=== PATIENT | female | born 1955 | race Caucasian/White ===

== ENCOUNTER → 2016-08-25 | Outpatient (CLI) | payer MEDICARE, OTHER ==
[~2016-08-25] MED LIST: AMLODIPINE BESYL5 MG PO; ASPIR-TRIN325 M1 PO; ASPIRIN325 MG PO; ATENOLOL50 M1 PO; BACTRIM,SEPT1 TABLET PO; CALCIUM 600 MG1 EAC1 PO; CALTRATE 6001 TABLE1 PO; CAPOTEN50 MG PO; DELTASONE20 M1 PO; ENDOCET 5-3251 EACH PO; FEOSOL325 MG PO; FIBER THERAPY; FUROSEMIDE20 MG PO; GABAPENTIN600 MG PO; K-DUR20 MEQ PO; LEVOTHROID25 MCG PO; LEVOTHYROXINE25 MCG PO; LOVASTATIN40 MG PO; NAPROXEN500 MG PO; OXYCODONE-ACET1 EACH PO; PERCOCET 5/31 TABLET PO; PREDNISONE20 MG PO; PREMARIN0.625 MG PO; SENOKOT S,PE1 TABLET PO; THERAGRAN1 TABLET PO; TYLENOL EXTRA500 MG PO; VITAMIN D; Vicodin,Lortab 5/500 PO
== END | disposition home or self-care (01) ==
LOC: CDC 11:45
DX: Z01.810 Encounter for preprocedural cardiovascular examination (principal); R94.31 Abnormal electrocardiogram [ECG] [EKG]
CPT/HCPCS: 93000

== ENCOUNTER 2016-09-22 10:50 | Emergency (ER) | payer OTHER ==
[~2016-09-22] VITALS: Ht 165.1 cm; Wt 96.0 kg
[2016-09-22 12:04] LABS: BASOPHIL COUNT 0.1 K/uL (0-0.1); EOSINOPHIL (%) 7.2 % (0-5); EOSINOPHIL COUNT 0.5 K/uL (0-0.3); HEMATOCRIT 44.6 % (36.0-46.0); IMMATURE GRANULOCYTE (%) 0.3 % (0.0-0.7); LYMPHOCYTE COUNT 1.2 K/uL (1.0-2.8); MCH 28.5 PG (29.0-34.0); MCHC 31.4 G/DL (30.0-36.0); MCV 90.7 FL (83-99); MEAN PLAT.VOLUME 9.8 uM^3 (9.5-12.4); MONOCYTE (%) 9.2 % (3-12); MONOCYTE COUNT 0.6 K/uL (0-0.8); NEUTROPHIL (%) 62.6 % (45-76); PLATELET COUNT 281 K/uL (156-360); RBC DIS.WIDTH-CV 14.3 % (11.8-14.6); RED BLOOD COUNT 4.92 M/uL (3.80-5.20); WHITE BLOOD COUNT 6.4 K/uL (4.1-10.2)
[2016-09-22 12:14] LABS: CHLORIDE 105 mEq/L (99-109); POTASSIUM 5.2 mEq/L (3.7-5.4); SODIUM 137 mEq/L (136-147)
[2016-09-22 12:15] LABS: GLUCOSE 104 mg/dL (70-99)
[2016-09-22 12:17] LABS: ANION GAP 7 MEQ/L (2-14)
[2016-09-22 12:19] LABS: GFR ESTIMATE (CALCULATED) 53 mL/min/
[2016-09-22 12:20] LABS: UREA NITROGEN (BUN) 10 mg/dL (9-23)
[2016-09-22 13:31] LABS: ADD MIUA? YES; BILIRUBIN NEGATIVE; BLOOD NEGATIVE; COLOR STRAW ((YELLOW)); GLUCOSE (STRIP) NEGATIVE; KETONES NEGATIVE; LEUKOCYTES TRACE; NITRITE NEGATIVE; PROTEIN (STRIP) NEGATIVE; SPECIFIC GRAVITY 1.004 (1.000-1.030); UROBILINOGEN 0.2 MG/DL (0.2-1.0)
[2016-09-22 13:34] LABS: BACTERIA RARE /HPF; EPITHELIAL CELLS RARE /HPF; MUCUS NONE SEEN /LPF; RED BLOOD CELLS 0-5 /HPF (0-5); UCUL ADDED? NO; WHITE BLOOD CELLS 0-5 /HPF (0-5)
[2016-09-22] MEDS ORDERED: FLEXERIL10 MG PO (16:19)
[2016-09-22 16:40] VITALS: BP 131/44
== END 2016-09-22 17:45 | disposition home or self-care (01) ==
LOC: EME 10:50
DX: S86.911A Strain of unspecified muscle(s) and tendon(s) at lower leg level, right leg, initial encounter (principal); S39.011A Strain of muscle, fascia and tendon of abdomen, initial encounter; M79.661 Pain in right lower leg; W18.39XA Other fall on same level, initial encounter; E78.5 Hyperlipidemia, unspecified; I10 Essential (primary) hypertension; E03.9 Hypothyroidism, unspecified; Z85.828 Personal history of other malignant neoplasm of skin
CPT/HCPCS: 72170; 73502; 80048; 81003; 85025; 93971; 99281; 99284; J1885

== ENCOUNTER 2017-02-28 00:22 | Inpatient (IN) | payer OTHER ==
[~2017-02-28] VITALS: Ht 165.1 cm; Wt 101.5 kg
[~2017-02-28 00:22] MED LIST changes: +FLEXERIL10 MG PO; -GABAPENTIN600 MG PO; +GABAPENTIN800 MG PO; -LEVOTHYROXINE25 MCG PO; +LEVOTHYROXINE75 MCG PO
[2017-02-28 01:39] LABS: CHLORIDE 105 mEq/L (99-109); POTASSIUM 4.8 mEq/L (3.7-5.4); SODIUM 137 mEq/L (136-147)
[2017-02-28 01:41] LABS: GLUCOSE 135 mg/dL (70-99)
[2017-02-28 01:42] LABS: ANION GAP 11 MEQ/L (2-14)
[2017-02-28 01:43] LABS: TOTAL BILIRUBIN 0.6 mg/dL (0.0-1.0)
[2017-02-28 01:45] LABS: ALKALINE PHOSPHATASE 82 IU/L (3-129); GFR ESTIMATE (CALCULATED) > 59 mL/min/
[2017-02-28 01:46] LABS: UREA NITROGEN (BUN) 14 mg/dL (9-23)
[2017-02-28 01:48] LABS: LIPASE 50 U/L (1.0-51.0)
[2017-02-28 02:14] LABS: HEMATOCRIT 43.5 % (36.0-46.0); MCV 87.7 FL (83-99); MEAN PLAT.VOLUME 10.1 uM^3 (9.5-12.4); PLATELET COUNT 225 K/uL (156-360); RBC DIS.WIDTH-CV 13.5 % (11.8-14.6); RBC DIS.WIDTH-SD 43.8 % (39-53); RED BLOOD COUNT 4.96 M/uL (3.80-5.20); WHITE BLOOD COUNT 13.8 K/uL (4.1-10.2)
[2017-02-28 02:20] LABS: PROTHROMBIN TIME 11.3 SEC (10.2-12.9)
[2017-02-28 02:22] LABS: PTT 26.8 SEC (25-37)
[2017-02-28 02:46] LABS: ADD MIUA? YES; BILIRUBIN NEGATIVE; BLOOD MODERATE; COLOR STRAW ((YELLOW)); GLUCOSE (STRIP) NEGATIVE; KETONES NEGATIVE; LEUKOCYTES SMALL; NITRITE NEGATIVE; PROTEIN (STRIP) NEGATIVE; SPECIFIC GRAVITY 1.006 (1.000-1.030); UROBILINOGEN 0.2 MG/DL (0.2-1.0)
[2017-02-28 03:13] LABS: BACTERIA RARE /HPF; EPITHELIAL CELLS RARE /HPF; MUCUS TRACE /LPF; RED BLOOD CELLS 0-5 /HPF (0-5); UCUL ADDED? NO; WHITE BLOOD CELLS 0-5 /HPF (0-5)
[2017-02-28 08:45] VITALS: BP 143/67
[2017-02-28 11:39] VITALS: BP 143/67
[2017-02-28 15:40] VITALS: BP 130/70
[2017-02-28 20:35] VITALS: BP 116/55
[2017-02-28 21:10] VITALS: BP 129/60
[2017-03-01 00:15] VITALS: BP 121/58
[2017-03-01 04:18] VITALS: BP 106/65
[2017-03-01 07:13] LABS: ALKALINE PHOSPHATASE 65 IU/L (3-129); ANION GAP 9 MEQ/L (2-14); CHLORIDE 110 MEQ/L (99-109); GFR ESTIMATE (CALCULATED) > 59 mL/min/; MAGNESIUM 2.1 mg/dl (1.3-2.7); SAMPLE HEMOLYSIS CHECK 0; SAMPLE ICTERIC CHECK 0; SAMPLE LIPEMIA CHECK 0; SODIUM 142 MEQ/L (136-147); TOTAL BILIRUBIN 0.7 MG/DL (0.0-1.0); UREA NITROGEN (BUN) 9 mg/dL (9-23)
[2017-03-01 07:18] LABS: EOSINOPHIL (%) 9.1 % (0-5); EOSINOPHIL COUNT 0.5 K/uL (0-0.3); HEMATOCRIT 37.4 % (36.0-46.0); IMMATURE GRANULOCYTE (%) 0.3 % (0.0-0.7); INSTRUMENT ABS NEUTROPHIL CT 3.1 K/uL; LYMPHOCYTE COUNT 1.5 K/uL (1.0-2.8); MCH 27.5 PG (29.0-34.0); MCHC 31.3 G/DL (30.0-36.0); MCV 87.8 FL (83-99); MEAN PLAT.VOLUME 10.6 uM^3 (9.5-12.4); MONOCYTE COUNT 0.6 K/uL (0-0.8); NEUTROPHIL (%) 53.5 % (45-76); NEUTROPHIL COUNT 3.1 K/uL (1.8-6.4); PLATELET COUNT 177 K/uL (156-360); RBC DIS.WIDTH-SD 45.1 % (39-53); RED BLOOD COUNT 4.26 M/uL (3.80-5.20); WHITE BLOOD COUNT 5.8 K/uL (4.1-10.2)
[2017-03-01 07:22] LABS: GLUCOSE 94 mg/dL (70-99)
[2017-03-01 08:26] VITALS: BP 131/66
[2017-03-01 10:13] LABS: C DIFF TOXIN NEGATIVE (NEGATIVE)
[2017-03-01 10:17] LABS: PROBE CHECK PASS; SPECIMEN PROCESSING CONTROL PASS
[2017-03-01 11:21] VITALS: BP 127/65
[2017-03-01 15:34] VITALS: BP 134/69
[2017-03-01 20:43] LABS: BASOPHIL COUNT 0.1 K/uL (0-0.1); EOSINOPHIL (%) 8.6 % (0-5); EOSINOPHIL COUNT 0.6 K/uL (0-0.3); HEMATOCRIT 40.4 % (36.0-46.0); IMMATURE GRANULOCYTE (%) 0.3 % (0.0-0.7); INSTRUMENT ABS NEUTROPHIL CT 3.5 K/uL; LYMPHOCYTE COUNT 1.7 K/uL (1.0-2.8); MCH 28.7 PG (29.0-34.0); MCHC 31.9 G/DL (30.0-36.0); MONOCYTE (%) 11.5 % (3-12); MONOCYTE COUNT 0.8 K/uL (0-0.8); NEUTROPHIL (%) 53.3 % (45-76); NEUTROPHIL COUNT 3.5 K/uL (1.8-6.4); RBC DIS.WIDTH-CV 14.2 % (11.8-14.6); RBC DIS.WIDTH-SD 46.3 % (39-53); RED BLOOD COUNT 4.49 M/uL (3.80-5.20); WHITE BLOOD COUNT 6.5 K/uL (4.1-10.2)
[2017-03-01 21:41] LABS: MEAN PLAT.VOLUME 10.2 uM^3 (9.5-12.4); PLAT.SUFFICIENCY ADEQUATE; PLATELET COUNT 164 K/uL (156-360)
[2017-03-01 23:35] VITALS: BP 139/72
[2017-03-02 06:45] LABS: HEMATOCRIT 37.1 % (36.0-46.0); MCH 28.3 PG (29.0-34.0); MCHC 31.8 G/DL (30.0-36.0); MEAN PLAT.VOLUME 10.2 uM^3 (9.5-12.4); PLATELET COUNT 173 K/uL (156-360); RBC DIS.WIDTH-CV 14.1 % (11.8-14.6); RBC DIS.WIDTH-SD 45.9 % (39-53); RED BLOOD COUNT 4.17 M/uL (3.80-5.20); WHITE BLOOD COUNT 6.1 K/uL (4.1-10.2)
[2017-03-02 07:02] VITALS: BP 122/60
[2017-03-02 07:02] LABS: ANION GAP 8 MEQ/L (2-14); CHLORIDE 112 MEQ/L (99-109); MAGNESIUM 2.2 mg/dl (1.3-2.7); POTASSIUM 4.3 MEQ/L (3.7-5.4); SAMPLE HEMOLYSIS CHECK 0; SAMPLE ICTERIC CHECK 0; SAMPLE LIPEMIA CHECK 0; SODIUM 141 MEQ/L (136-147)
[2017-03-02 07:08] LABS: GFR ESTIMATE (CALCULATED) > 59 mL/min/; GLUCOSE 102 mg/dL (70-99); UREA NITROGEN (BUN) 7 mg/dL (9-23)
[2017-03-02 17:36] VITALS: BP 165/72
[2017-03-02 23:06] VITALS: BP 138/65
[2017-03-03 07:46] VITALS: BP 174/73
[2017-03-03 09:33] LABS: BASOPHIL COUNT 0.1 K/uL (0-0.1); EOSINOPHIL (%) 5.4 % (0-5); EOSINOPHIL COUNT 0.4 K/uL (0-0.3); HEMATOCRIT 39.9 % (36.0-46.0); IMMATURE GRANULOCYTE (%) 0.4 % (0.0-0.7); INSTRUMENT ABS NEUTROPHIL CT 5.7 K/uL; LYMPHOCYTE COUNT 1.1 K/uL (1.0-2.8); MCH 27.5 PG (29.0-34.0); MCHC 31.6 G/DL (30.0-36.0); MCV 87.1 FL (83-99); MEAN PLAT.VOLUME 10.2 uM^3 (9.5-12.4); MONOCYTE COUNT 0.5 K/uL (0-0.8); NEUTROPHIL (%) 73.8 % (45-76); NEUTROPHIL COUNT 5.7 K/uL (1.8-6.4); PLATELET COUNT 214 K/uL (156-360); RBC DIS.WIDTH-CV 14.1 % (11.8-14.6); RBC DIS.WIDTH-SD 45.1 % (39-53); RED BLOOD COUNT 4.58 M/uL (3.80-5.20); WHITE BLOOD COUNT 7.7 K/uL (4.1-10.2)
[2017-03-03 09:59] LABS: ANION GAP 10 MEQ/L (2-14); CHLORIDE 109 MEQ/L (99-109); GFR ESTIMATE (CALCULATED) > 59 mL/min/; GLUCOSE 116 mg/dL (70-99); POTASSIUM 4.1 MEQ/L (3.7-5.4); SAMPLE HEMOLYSIS CHECK 0; SAMPLE ICTERIC CHECK 0; SAMPLE LIPEMIA CHECK 0; SODIUM 141 MEQ/L (136-147); UREA NITROGEN (BUN) 8 mg/dL (9-23)
== END 2017-03-03 13:23 | disposition home or self-care (01) | DRG 394 ==
LOC: EME 00:22 → EDOF 04:01 → 2EAST 04:01 → ENRESERV 04:03 → 2EAST 06:10
PROVIDERS: Emergency Medicine; Internal Medicine; Internal Medicine Gastroenterology
DX: K55.031 Focal (segmental) acute (reversible) ischemia of large intestine (principal); I10 Essential (primary) hypertension; K92.2 Gastrointestinal hemorrhage, unspecified; E03.9 Hypothyroidism, unspecified; E78.5 Hyperlipidemia, unspecified; I25.10 Atherosclerotic heart disease of native coronary artery without angina pectoris; Z85.828 Personal history of other malignant neoplasm of skin; Z96.651 Presence of right artificial knee joint; M24.512 Contracture, left shoulder; S44.92 Injury of unspecified nerve at shoulder and upper arm level, left arm; K57.30 Diverticulosis of large intestine without perforation or abscess without bleeding; N20.0 Calculus of kidney; E78.00 Pure hypercholesterolemia, unspecified; R68.83 Chills (without fever)
CPT/HCPCS: 74177; 80048; 80053; 81003; 83690; 83735; 85025; 85025 91; 85027; 85610; 85730; 87493; 87506; 99281; 99285; J0744; J1956; J2270; J7030; S0028; S0030

== ENCOUNTER 2017-03-22 12:39 | Emergency (ER) | payer OTHER ==
[~2017-03-22] VITALS: Ht 165.1 cm; Wt 103.4 kg
[2017-03-22 14:30] LABS: ADD MIUA? YES; BILIRUBIN NEGATIVE; BLOOD SMALL; COLOR STRAW ((YELLOW)); GLUCOSE (STRIP) NEGATIVE; KETONES NEGATIVE; LEUKOCYTES TRACE; NITRITE NEGATIVE; PROTEIN (STRIP) NEGATIVE; SPECIFIC GRAVITY 1.006 (1.000-1.030); UROBILINOGEN 0.2 MG/DL (0.2-1.0)
[2017-03-22 14:34] LABS: BACTERIA RARE /HPF; EPITHELIAL CELLS 2+ /HPF; HYALINE CASTS 0-5 /LPF; MUCUS TRACE /LPF; RED BLOOD CELLS 0-5 /HPF (0-5); WHITE BLOOD CELLS 0-5 /HPF (0-5)
[2017-03-22 15:25] LABS: HEMATOCRIT 45.3 % (36.0-46.0); MCH 27.8 PG (29.0-34.0); MCHC 31.6 G/DL (30.0-36.0); MCV 88.1 FL (83-99); RBC DIS.WIDTH-CV 13.8 % (11.8-14.6); RBC DIS.WIDTH-SD 44.2 % (39-53); RED BLOOD COUNT 5.14 M/uL (3.80-5.20); WHITE BLOOD COUNT 6.6 K/uL (4.1-10.2)
[2017-03-22 15:26] LABS: CHLORIDE 111 mEq/L (99-109); POTASSIUM 4.8 mEq/L (3.7-5.4); SODIUM 141 mEq/L (136-147)
[2017-03-22 15:27] LABS: BASOPHIL COUNT 0.1 K/uL (0-0.1); EOSINOPHIL COUNT 0.1 K/uL (0-0.3); IMMATURE GRANULOCYTE (%) 0.6 % (0.0-0.7); MONOCYTE (%) 4.7 % (3-12); MONOCYTE COUNT 0.3 K/uL (0-0.8); NEUTROPHIL (%) 76.2 % (45-76)
[2017-03-22 15:28] LABS: GLUCOSE 109 mg/dL (70-99)
[2017-03-22 15:30] LABS: ANION GAP 11 MEQ/L (2-14)
[2017-03-22 15:32] LABS: GFR ESTIMATE (CALCULATED) > 59 mL/min/
[2017-03-22 15:33] LABS: UREA NITROGEN (BUN) 9 mg/dL (9-23)
[2017-03-22 15:58] LABS: PLAT.SUFFICIENCY DECREASED
[2017-03-22 16:02] LABS: PLATELET COUNT 142 K/uL (156-360)
[2017-03-22] MEDS ORDERED: PERCOCET 5/31 TABLET PO (16:44)
[2017-03-22] MEDS ORDERED: VALIUM5 MG PO (16:50)
[2017-03-22 18:00] VITALS: BP 159/76
== END 2017-03-22 18:25 | disposition home or self-care (01) ==
LOC: EME 12:39
PROVIDERS: Emergency Medicine
DX: M54.42 Lumbago with sciatica, left side (principal); R10.32 Left lower quadrant pain; E03.9 Hypothyroidism, unspecified; I10 Essential (primary) hypertension; E78.5 Hyperlipidemia, unspecified; Z90.49 Acquired absence of other specified parts of digestive tract; Z90.710 Acquired absence of both cervix and uterus; Z79.82 Long term (current) use of aspirin; Z85.828 Personal history of other malignant neoplasm of skin
CPT/HCPCS: 80048; 81003; 85025; 99281; 99285; J1100; J1885; J2270; J7040

== ENCOUNTER 2017-03-23 14:18 | Emergency (ER) | payer OTHER ==
[~2017-03-23] VITALS: Ht 165.1 cm; Wt 102.2 kg
[~2017-03-23 14:18] MED LIST changes: +VALIUM5 MG PO
[2017-03-23 16:27] VITALS: BP 142/66
== END 2017-03-23 16:29 | disposition home or self-care (01) ==
LOC: EME 14:18
DX: M54.42 Lumbago with sciatica, left side (principal); I10 Essential (primary) hypertension; E03.9 Hypothyroidism, unspecified; E78.5 Hyperlipidemia, unspecified; Z85.828 Personal history of other malignant neoplasm of skin; Z79.82 Long term (current) use of aspirin; Z90.49 Acquired absence of other specified parts of digestive tract; Z90.710 Acquired absence of both cervix and uterus
CPT/HCPCS: 99281; 99285; J1885; J2270

== ENCOUNTER → 2017-04-20 | Outpatient (CLI) | payer OTHER | END | disposition home or self-care (01) | LOC: MRI 09:18 → RAD 11:00 → MRI 11:00 | DX: M51.36 Other intervertebral disc degeneration, lumbar region (principal); M48.061 Spinal stenosis, lumbar region without neurogenic claudication; M51.26 Other intervertebral disc displacement, lumbar region | CPT/HCPCS: 72148 ==

== ENCOUNTER → 2017-11-07 | Outpatient (CLI) | payer OTHER | END | disposition home or self-care (01) | LOC: NUC 07:21 | DX: G89.29 Other chronic pain (principal); M41.86 Other forms of scoliosis, lumbar region; M47.896 Other spondylosis, lumbar region; M17.12 Unilateral primary osteoarthritis, left knee; Z96.651 Presence of right artificial knee joint; M41.50 Other secondary scoliosis, site unspecified; R29.898 Other symptoms and signs involving the musculoskeletal system; M12.88 Other specific arthropathies, not elsewhere classified, other specified site; M51.36 Other intervertebral disc degeneration, lumbar region; M46.1 Sacroiliitis, not elsewhere classified | CPT/HCPCS: 72131; 78315; A9503 ==

== ENCOUNTER 2018-02-23 19:21 | Inpatient (IN) | payer OTHER ==
[~2018-02-23] VITALS: Ht 160 cm; Wt 89.9 kg
[~2018-02-23 19:21] MED LIST changes: -FIBER THERAPY; +FIBER THERAPY PO
[2018-02-23 20:08] LABS: BASOPHIL (%) 0.4 % (0-1); BASOPHIL COUNT 0.1 K/uL (0-0.1); EOSINOPHIL (%) 2.8 % (0-5); EOSINOPHIL COUNT 0.4 K/uL (0-0.3); HEMOGLOBIN 12.4 G/DL (11.9-15.5); IMMATURE GRANULOCYTE (%) 0.4 % (0.0-0.7); LYMPHOCYTE (%) 6.9 % (15-42); MCH 27.3 PG (29.0-34.0); MCHC 31.8 G/DL (30.0-36.0); MCV 85.9 FL (83-99); MONOCYTE (%) 4.4 % (3-12); MONOCYTE COUNT 0.6 K/uL (0-0.8); NEUTROPHIL (%) 85.1 % (45-76); NEUTROPHIL COUNT 11.8 K/uL (1.8-6.4); PLATELET COUNT 242 K/uL (156-360); RBC DIS.WIDTH-CV 12.9 % (11.8-14.6); RBC DIS.WIDTH-SD 40.1 % (39-53); RED BLOOD COUNT 4.54 M/uL (3.80-5.20); WHITE BLOOD COUNT 13.9 K/uL (4.1-10.2)
[2018-02-23 20:16] LABS: ALBUMIN 3.8 g/dL (3.2-4.8); CHLORIDE 100 mEq/L (99-109); POTASSIUM 3.2 mEq/L (3.7-5.4); SODIUM 138 mEq/L (136-147)
[2018-02-23 20:18] LABS: GLUCOSE 143 mg/dL (70-99); TOTAL PROTEIN 7.2 g/dL (6.4-8.3)
[2018-02-23 20:20] LABS: TOTAL BILIRUBIN 0.5 mg/dL (0.0-1.0)
[2018-02-23 20:21] LABS: ALKALINE PHOSPHATASE 81 IU/L (3-129)
[2018-02-23 20:22] LABS: CREATININE 0.8 mg/dL (0.6-1.3); GFR ESTIMATE (CALCULATED) > 59 mL/min/
[2018-02-23 20:23] LABS: AST (GOT) 14 IU/L (2-34); UREA NITROGEN (BUN) 12 mg/dL (9-23)
[2018-02-23 20:25] LABS: ALT (GPT) 13 IU/L (3-49); LIPASE 27 U/L (1.0-51.0)
[2018-02-23 22:42] LABS: APPEARANCE CLEAR ((CLEAR)); BILIRUBIN NEGATIVE; BLOOD NEGATIVE; COLOR YELLOW ((YELLOW)); GLUCOSE (STRIP) NEGATIVE; KETONES NEGATIVE; LEUKOCYTES SMALL; NITRITE NEGATIVE; PROTEIN (STRIP) 30; UROBILINOGEN 0.2 MG/DL (0.2-1.0)
[2018-02-23 22:47] LABS: BACTERIA RARE /HPF; EPITHELIAL CELLS RARE /HPF; HYALINE CASTS 0-5 /LPF; MUCUS TRACE /LPF; UCUL ADDED? YES
[2018-02-24] MEDS ORDERED: DICLOFENAC SODI75 MG PO (00:59)
[2018-02-24] MEDS ORDERED: METOPROLOL SUCC50 MG PO (01:00)
[2018-02-24] MEDS ORDERED: NUCYNTA ER50 MG PO (01:00)
[2018-02-24] MEDS ORDERED: ASPIRIN EC325 MG PO (01:04)
[2018-02-24] MEDS ORDERED: STOOL SOFTENER100 M1 PO (01:07)
[2018-02-24] MEDS ORDERED: FLONASE16 G1 BOTH NARES (01:08)
[2018-02-24] MEDS ORDERED: METHENAMINE HIPP1 G1 PO (01:10)
[2018-02-24] MEDS ORDERED: BENTYL20 MG PO (01:11)
[2018-02-24] MEDS ORDERED: PANTOPRAZOLE SO40 MG PO (01:12)
[2018-02-24] MEDS ORDERED: ONDANSETRON HCL4 MG PO (01:13)
[2018-02-24] MEDS ORDERED: MOVANTIK25 MG PO (01:14)
[2018-02-24 02:38] VITALS: BP 179/84
[2018-02-24 05:19] VITALS: BP 198/90
[2018-02-24 08:45] LABS: HEMATOCRIT 37.8 % (36.0-46.0); HEMOGLOBIN 12.1 G/DL (11.9-15.5); MCH 27.3 PG (29.0-34.0); MCV 85.1 FL (83-99); RBC DIS.WIDTH-CV 13.2 % (11.8-14.6); RBC DIS.WIDTH-SD 41.3 % (39-53); RED BLOOD COUNT 4.44 M/uL (3.80-5.20); WHITE BLOOD COUNT 11.4 K/uL (4.1-10.2)
[2018-02-24 09:10] LABS: ALBUMIN 3.5 G/DL (3.2-4.8); ALKALINE PHOSPHATASE 71 IU/L (3-129); ALT (GPT) 13 IU/L (3-49); AST (GOT) 27 IU/L (2-34); CHLORIDE 104 MEQ/L (99-109); CREATININE 0.7 MG/DL (0.6-1.3); GFR ESTIMATE (CALCULATED) > 59 mL/min/; GLUCOSE 165 mg/dL (70-99); SODIUM 137 MEQ/L (136-147); TOTAL BILIRUBIN 0.5 MG/DL (0.0-1.0); UREA NITROGEN (BUN) 9 mg/dL (9-23)
[2018-02-24 09:18] LABS: PLAT.SUFFICIENCY DECREASED
[2018-02-24 09:36] LABS: PLATELET COUNT 148 K/uL (156-360)
[2018-02-24 09:59] LABS: POTASSIUM 3.5 mEq/L (3.7-5.4)
[2018-02-24 10:59] VITALS: BP 130/61
[2018-02-24 16:00] VITALS: BP 178/73
[2018-02-24 19:43] VITALS: BP 183/77
[2018-02-24 23:14] VITALS: BP 140/70
[2018-02-25 04:34] VITALS: BP 184/82
[2018-02-25 07:48] VITALS: BP 184/76
[2018-02-25 08:36] VITALS: BP 174/82
[2018-02-25 09:28] LABS: BASOPHIL (%) 0.4 % (0-1); EOSINOPHIL (%) 0.6 % (0-5); EOSINOPHIL COUNT 0.1 K/uL (0-0.3); HEMOGLOBIN 10.5 G/DL (11.9-15.5); IMMATURE GRANULOCYTE (%) 0.6 % (0.0-0.7); LYMPHOCYTE (%) 13.5 % (15-42); LYMPHOCYTE COUNT 1.1 K/uL (1.0-2.8); MCH 27.1 PG (29.0-34.0); MCHC 31.8 G/DL (30.0-36.0); MCV 85.1 FL (83-99); MONOCYTE (%) 10.2 % (3-12); MONOCYTE COUNT 0.8 K/uL (0-0.8); NEUTROPHIL (%) 74.7 % (45-76); NEUTROPHIL COUNT 6.1 K/uL (1.8-6.4); RBC DIS.WIDTH-CV 13.4 % (11.8-14.6); RBC DIS.WIDTH-SD 41.6 % (39-53); RED BLOOD COUNT 3.88 M/uL (3.80-5.20); WHITE BLOOD COUNT 8.2 K/uL (4.1-10.2)
[2018-02-25 09:38] LABS: PLATELET COUNT 212 K/uL (156-360)
[2018-02-25 09:50] LABS: CHLORIDE 104 MEQ/L (99-109); CREATININE 0.6 MG/DL (0.6-1.3); GFR ESTIMATE (CALCULATED) > 59 mL/min/; GLUCOSE 139 mg/dL (70-99); POTASSIUM 3.7 MEQ/L (3.7-5.4); SODIUM 137 MEQ/L (136-147); UREA NITROGEN (BUN) 8 mg/dL (9-23)
[2018-02-25 11:40] VITALS: BP 173/79
[2018-02-25 15:26] VITALS: BP 156/80
[2018-02-25 19:44] VITALS: BP 153/76
[2018-02-26 00:21] VITALS: BP 139/66
[2018-02-26 03:50] VITALS: BP 133/71
[2018-02-26 06:22] LABS: HEMATOCRIT 32.8 % (36.0-46.0); HEMOGLOBIN 10.6 G/DL (11.9-15.5); MCH 27.7 PG (29.0-34.0); MCHC 32.3 G/DL (30.0-36.0); MCV 85.6 FL (83-99); PLATELET COUNT 218 K/uL (156-360); RBC DIS.WIDTH-CV 13.5 % (11.8-14.6); RBC DIS.WIDTH-SD 42.3 % (39-53); RED BLOOD COUNT 3.83 M/uL (3.80-5.20); WHITE BLOOD COUNT 10.1 K/uL (4.1-10.2)
[2018-02-26 06:46] LABS: CHLORIDE 107 MEQ/L (99-109); CREATININE 0.6 MG/DL (0.6-1.3); GFR ESTIMATE (CALCULATED) > 59 mL/min/; POTASSIUM 3.9 MEQ/L (3.7-5.4); SODIUM 140 MEQ/L (136-147); UREA NITROGEN (BUN) 6 mg/dL (9-23)
[2018-02-26 06:47] LABS: GLUCOSE 99 mg/dL (70-99)
[2018-02-26 07:06] VITALS: BP 117/83
[2018-02-26 11:17] VITALS: BP 142/67
[2018-02-26 15:12] VITALS: BP 130/58
[2018-02-26 19:07] VITALS: BP 139/63
[2018-02-27 00:10] VITALS: BP 139/64
[2018-02-27 03:33] VITALS: BP 137/66
[2018-02-27 05:53] LABS: BASOPHIL (%) 0.8 % (0-1); BASOPHIL COUNT 0.1 K/uL (0-0.1); EOSINOPHIL (%) 4.1 % (0-5); EOSINOPHIL COUNT 0.4 K/uL (0-0.3); HEMATOCRIT 32.4 % (36.0-46.0); HEMOGLOBIN 10.3 G/DL (11.9-15.5); IMMATURE GRANULOCYTE (%) 0.8 % (0.0-0.7); LYMPHOCYTE (%) 13.1 % (15-42); LYMPHOCYTE COUNT 1.2 K/uL (1.0-2.8); MCH 27.2 PG (29.0-34.0); MCHC 31.8 G/DL (30.0-36.0); MCV 85.5 FL (83-99); MONOCYTE (%) 7.3 % (3-12); MONOCYTE COUNT 0.7 K/uL (0-0.8); NEUTROPHIL (%) 73.9 % (45-76); NEUTROPHIL COUNT 6.6 K/uL (1.8-6.4); PLATELET COUNT 218 K/uL (156-360); RBC DIS.WIDTH-CV 13.8 % (11.8-14.6); RBC DIS.WIDTH-SD 42.7 % (39-53); RED BLOOD COUNT 3.79 M/uL (3.80-5.20)
[2018-02-27 06:16] LABS: CHLORIDE 103 MEQ/L (99-109); CREATININE 0.6 MG/DL (0.6-1.3); GFR ESTIMATE (CALCULATED) > 59 mL/min/; GLUCOSE 108 mg/dL (70-99); POTASSIUM 3.5 MEQ/L (3.7-5.4); SODIUM 137 MEQ/L (136-147); UREA NITROGEN (BUN) 6 mg/dL (9-23)
[2018-02-27 07:42] VITALS: BP 158/70
[2018-02-27] MEDS ORDERED: COLACE100 MG PO (09:04)
[2018-02-27] MEDS ORDERED: ROXICODONE5 MG PO (09:04)
[2018-02-27 12:08] VITALS: BP 180/84
[2018-02-27 12:53] LABS: C DIFF TOXIN POSITIVE (NEGATIVE)
[2018-02-27 19:33] VITALS: BP 153/76
[2018-02-28 00:50] VITALS: BP 162/68
[2018-02-28 03:54] VITALS: BP 154/78
[2018-02-28 07:35] VITALS: BP 158/84
[2018-02-28 08:53] LABS: CHLORIDE 103 MEQ/L (99-109); CREATININE 0.7 MG/DL (0.6-1.3); GFR ESTIMATE (CALCULATED) > 59 mL/min/; GLUCOSE 104 mg/dL (70-99); MAGNESIUM 2.2 mg/dl (1.3-2.7); PHOSPHORUS 3.1 mg/dL (2.5-4.9); POTASSIUM 3.2 MEQ/L (3.7-5.4); SODIUM 139 MEQ/L (136-147); UREA NITROGEN (BUN) 6 mg/dL (9-23)
[2018-02-28 16:19] VITALS: BP 172/75
[2018-03-01 00:08] VITALS: BP 142/60
[2018-03-01 05:36] LABS: HEMATOCRIT 32.5 % (36.0-46.0); HEMOGLOBIN 10.3 G/DL (11.9-15.5); MCH 26.8 PG (29.0-34.0); MCHC 31.7 G/DL (30.0-36.0); MCV 84.6 FL (83-99); PLATELET COUNT 251 K/uL (156-360); RBC DIS.WIDTH-CV 13.8 % (11.8-14.6); RBC DIS.WIDTH-SD 42.3 % (39-53); RED BLOOD COUNT 3.84 M/uL (3.80-5.20); WHITE BLOOD COUNT 6.3 K/uL (4.1-10.2)
[2018-03-01 06:09] LABS: CHLORIDE 103 MEQ/L (99-109); CREATININE 0.6 MG/DL (0.6-1.3); GFR ESTIMATE (CALCULATED) > 59 mL/min/; GLUCOSE 107 mg/dL (70-99); POTASSIUM 3.7 MEQ/L (3.7-5.4); SODIUM 138 MEQ/L (136-147); UREA NITROGEN (BUN) 6 mg/dL (9-23)
[2018-03-01 07:18] VITALS: BP 197/87
[2018-03-01 08:18] VITALS: BP 136/62
[2018-03-01 15:27] VITALS: BP 187/73
[2018-03-02 00:25] VITALS: BP 156/78
[2018-03-02 07:25] VITALS: BP 142/92
[2018-03-02] MEDS ORDERED: VANCOCIN HCL125 MG PO (07:32)
[2018-03-02] MEDS ORDERED: ASPIRIN81 M2 PO (07:33)
[2018-03-02] MEDS ORDERED: K-DUR10 MEQ PO (07:40)
== END 2018-03-02 13:35 | disposition home or self-care (01) | DRG 336 ==
LOC: EME → EDBD 19:21 → EDOF 02-24 01:14 → 5SOUTH 02-24 01:14 → ENRESERV 02-24 01:16 → 5SOUTH 02-24 02:31 → ENRESERV 02-25 01:15 → 5SOUTH 02-25 01:15
PROVIDERS: Emergency Medicine; Hospitalist; Internal Medicine; Physician Assistant; Physician Assistant Surgical
PROC: 0DNU0ZZ Release Omentum, Open Approach (ICD-10-PCS; principal; 2018-02-24)
DX: K56.690 Other partial intestinal obstruction (principal); A04.72 Enterocolitis due to Clostridium difficile, not specified as recurrent; E66.9 Obesity, unspecified; Z68.35 Body mass index [BMI] 35.0-35.9, adult; E03.9 Hypothyroidism, unspecified; I25.10 Atherosclerotic heart disease of native coronary artery without angina pectoris; I10 Essential (primary) hypertension; E78.5 Hyperlipidemia, unspecified; E87.2 Acidosis; E87.6 Hypokalemia; E86.0 Dehydration; I73.9 Peripheral vascular disease, unspecified; K21.9 Gastro-esophageal reflux disease without esophagitis; M41.9 Scoliosis, unspecified; G89.29 Other chronic pain; R18.8 Other ascites; K57.90 Diverticulosis of intestine, part unspecified, without perforation or abscess without bleeding; Z96.612 Presence of left artificial shoulder joint
CPT/HCPCS: 71045; 74177; 80048; 80053; 81003; 82948; 83605; 83690; 83735; 84100; 84999; 85025; 85027; 87086; 87493; 94799; 97530 GO; 99281; 99285; C9113; J0360; J1170; J1650; J2250; J2270; J2405; J2550; J3010; J3480; J7030; J7042; S0030; S0074